=== PATIENT | female | born 1985 | race Caucasian/White ===

== ENCOUNTER 2017-05-25 20:17 | Emergency (ER) | payer MEDICAID, OTHER ==
[2017-05-25 20:22] VITALS: BP 138/93
[2017-05-25] MEDS ORDERED: DEXAMETHASONE 10 MG/ML VIAL PO STA (21:12)
--- NOTE | 2017-05-25 21:16 | ED Physician Documentation ---
History of Present Illness - Stated complaint Stated Complaint: R EAR PX - Chief complaint Chief Complaint: Heent - History obtained from History obtained from: Patient, Family - History of Present Illness Timing: Yesterday Pain level max: 8 Pain level now: 8 Improved by: ibuprofen Worsened by: nothing - Additonal information Additional information: Patient is a 31-year-old female who presents to the emergency department with right-sided facial pain and right ear pain for the last day and a half. States felt a popping in the ear today. Took Motrin and this originally helped, though when took Motrin tonight the pain did not improve. Denies any fevers. Denies any rhinorrhea or cough. No sore throat. Review of Systems Constitutional: denies: Fever, Chills Nose: reports: Sinus pressure / pain Throat: reports: Dental pain / toothache (tooth pulled on mandible 3 weeks ago, no pain with palpation or chewing). 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 - Present Medications Home Medications: Ambulatory Orders Medication Instructions Recorded Confirmed Cetirizine HCl/Pseudoephedrine 1 each PO BID PRN #30 tab.er.12h 05/25/17 [Zyrtec-D Tablet] Mometasone Furoate [Nasonex] 2 applic NS DAILY PRN #1 spray.pump 05/25/17 - Allergies Allergies/Adverse Reactions: Allergies Allergy/AdvReac Type Severity Reaction Status Date / Time carbamazepine [From Tegretol] Allergy Unknown Verified 05/25/17 20:23 - Social History Does the pt smoke?: No Smoking Status: Never smoker Does the pt drink ETOH?: No Does the pt have substance abuse?: No - Immunizations Immunizations are current?: Yes Immunizations: TDAP >10years/unknown PD ED PE NORMAL - Vitals Vital signs reviewed: Yes - General General: Alert and oriented X 3, No acute distress, Well developed/nourished - HEENT HEENT: PERRL, EOMI, Ears normal (normal TM B), Moist mucous membranes, Pharynx benign, Other (TTP over the R maxillary sinus and inflammed nasal turbinates on the R nare) - Neck Neck: Supple, no meningeal sign, No adenopathy, Other (no mastoid tenderness) - Cardiac Cardiac: RRR - Respiratory Respiratory: No respiratory distress, Clear bilaterally - Neuro Neuro: Alert and oriented X 3 - Psych Psych: Normal mood, Normal affect Results - Vitals Vitals: Vital Signs - 24 hr 05/25/17 20:20 Temperature 36.5 C Heart Rate 84 Respiratory 18 Rate Blood Pressure 138/93 H O2 Saturation 100 Oxygen O2 Source Room air PD MEDICAL DECISION MAKING - ED course Complexity details: considered differential, d/w patient ED course: Patient is a 31-year-old female who presents to the emergency department with what appears to be a right-sided maxillary sinus infection. No fevers. Nontoxic. Well-appearing. Will hold antibiotics at this time and trial her on decongestants and intranasal steroids. Given pain medication here. No evidence of dental infection. No ear infection. No mastoiditis. Patient counseled regarding signs and symptoms for which I believe and urgent re- evaluation would be necessary. Patient with good understanding of and agreement to plan and is comfortable going home at this time This document was made in part using voice recognition software. While efforts are made to proofread this document, sound alike and grammatical errors may occur. Departure - Departure Disposition: 01 Home, Self Care Clinical Impression: Sinus infection Qualifiers: Sinusitis location: maxillary Chronicity: acute Recurrence: non-recurrent Qualified Code(s): J01.00 - Acute maxillary sinusitis, unspecified Condition: Good Instructions: ED Sinusitis No Abx Follow-Up: your,doctor in 1 week [Other] Prescriptions: Mometasone Furoate [Nasonex] 2 applic NS DAILY PRN #1 spray.pump PRN Reason: Nasal Congestion Cetirizine HCl/Pseudoephedrine [Zyrtec-D Tablet] 1 each PO BID PRN #30 tab.er.12h PRN Reason: Nasal Congestion Comments: Return if you worsen. This should improve over the next few days. Discharge Date/Time: 05/25/17 21:40
[2017-05-25] MEDS ORDERED: DEXAMETHASONE 10 MG/ML VIAL ONE (21:19)
[2017-05-25] MEDS ORDERED: IBUPROFEN 800 MG TABLET PO STA (21:32)
[2017-05-25] MEDS ORDERED: HYDROcod/ACETAM 5/325 MG TABLET PO STA (21:36)
[2017-05-25] MEDS ORDERED: IBUPROFEN 800 MG TABLET PO ONE (21:38)
[2017-05-25] MEDS ORDERED: HYDROcod/ACETAM 5/325 MG TABLET ONE (21:42)
== END 2017-05-25 21:40 | disposition home or self-care (01) ==
LOC: ED 20:17
DX: J01.00 Acute maxillary sinusitis, unspecified (principal)
CPT/HCPCS: 99283; A9270